=== PATIENT | male | born 1980 | race Two or more races ===

== ENCOUNTER 2020-11-01 00:25 | Inpatient (IN) | payer OTHER ==
[~2020-11-01] VITALS: Ht 182.9 cm; Wt 115.0 kg
[2020-11-01 00:55] VITALS: BP 153/97
[2020-11-01] MEDS ORDERED: PNEUMOCOCCAL VACCINE POLYVALENT 0.5 ML VIAL [PPSV23] IM ONE (02:15)
[2020-11-01] MEDS ORDERED: INFLUENZA VIRUS VACCINE QVS 2020-21 (6MO+)/PF 60 MCG/0.5 ML SYRINGE IM ONE (02:15)
[2020-11-01] MEDS ORDERED: AMOX500T2 PO (02:38)
[2020-11-01] MEDS ORDERED: GABA-1201 PO (02:58)
[2020-11-01] MEDS ORDERED: ACET-3385 PO (02:58)
[2020-11-01] MEDS ORDERED: NIFE-64 PO (02:58)
[2020-11-01] MEDS ORDERED: METF-961 PO (02:58)
[2020-11-01] MEDS ORDERED: INSU100V SQ (02:58)
[2020-11-01] MEDS ORDERED: GLIP10 PO (02:58)
[2020-11-01] MEDS ORDERED: NAPR250T4 PO (02:58)
[2020-11-01] MEDS ORDERED: CAPT25TA3 PO (02:58)
[2020-11-01 06:00] VITALS: BP 124/67
[2020-11-01] MEDS ORDERED: ACETAMINOPHEN 325 MG TABLET PO PRN (06:15)
[2020-11-01] MEDS ORDERED: HydrALAZINE HCL 50 MG TABLET PO PRN (06:15)
[2020-11-01] MEDS ORDERED: DEXTROSE 50%-WATER 25 GM/50 ML SYRINGE IVP PRN (06:15)
[2020-11-01 06:43] LABS: BASOPHILS % (AUTO) 0.6 % (0.0-2.0); EOSINOPHILS % (AUTO) 0.6 % (1.0-6.0); HEMATOCRIT 22.5 % (41-53); HEMOGLOBIN 7.5 g/dL (13.5-17.5); LYMPHOCYTES # (AUTO) 0.7 K/uL (1.0-4.8); LYMPHOCYTES % (AUTO) 6.4 % (22.0-44.0); MEAN CORPUSCULAR HEMOGLOBIN 31.5 pg (26.0-34.0); MEAN CORPUSCULAR HGB CONC 33.5 G/dL (31.0-37.0); MEAN CORPUSCULAR VOLUME 94 fL (80-100); MONOCYTES # (AUTO) 0.9 K/uL (0.1-1.0); MONOCYTES % (AUTO) 8.1 % (2.0-9.0); NEUTROPHILS # (AUTO) 9.5 K/uL (1.8-7.7); NEUTROPHILS % (AUTO) 84.3 % (40.0-70.0); PLATELET COUNT (AUTO) 295 K/uL (150-450); RED BLOOD CELL COUNT(AUTO) 2.39 MIL/uL (4.50-5.90); RED CELL DISTRIBUTION WIDTH 13.1 % (11.5-14.5)
[2020-11-01] MEDS: INSULIN LISPRO 100 UNITS/ML SQ PRN ×2 (06:49→21:18)
[2020-11-01 07:50] LABS: CALCIUM, TOTAL 8.7 mg/dL (8.8-10.5); CREATININE 1.72 mg/dL (0.60-1.30); POTASSIUM 5.1 mmol/L (3.5-5.1)
[2020-11-01] MEDS ORDERED: MetroNIDAZOLE 500 MG TABLET PO SCH (08:00)
[2020-11-01 08:15] LABS: GLUCOMETER DEV NAME(LOC) 6N.2; GLUCOSE,POINT OF CARE 266 MG/DL (70-110)
[2020-11-01] MEDS ORDERED: SODIUM CHLORIDE 0.9% 100 ML ONE (10:01)
[2020-11-01] MEDS: ASPIRIN 81 MG CHEWABLE TABLET PO SCH (10:11)
[2020-11-01] MEDS: HYDROCODONE/ACETAMINOPHEN 5-325 MG TABLET PO PRN ×2 (10:12→21:26)
[2020-11-01] MEDS: PROPRANOLOL HCL 40 MG TABLET PO SCH ×2 (10:12→21:15)
[2020-11-01] MEDS: NIFEdipine 90 MG ER TABLET PO SCH (10:12)
[2020-11-01] MEDS: CefTRIAXone 1 GM/DEXTROSE 50 ML IV SCH (12:30)
[2020-11-01] MEDS: CLINDAMYCIN 600 MG/D5% WATER 50 ML IV SCH ×2 (13:10→21:15)
[2020-11-01 20:52] VITALS: BP 119/69
[2020-11-01] MEDS ORDERED: INSULIN GLARGINE,HUM.REC.ANLOG 100 UNITS/ML SQ SCH (21:00)
[2020-11-02 01:33] LABS: GLUCOMETER DEV NAME(LOC) 4E.2; GLUCOSE,POINT OF CARE 268 MG/DL (70-110)
[2020-11-02] MEDS ORDERED: SODIUM CHLORIDE 0.9% 500 ML IV ONE (02:19)
[2020-11-02 04:23] VITALS: BP 146/71
[2020-11-02] MEDS: CLINDAMYCIN 600 MG/D5% WATER 50 ML IV SCH (05:09)
[2020-11-02] MEDS: INSULIN LISPRO 100 UNITS/ML SQ PRN (07:03)
[2020-11-02] MEDS: CefTRIAXone 1 GM/DEXTROSE 50 ML IV SCH (08:09)
[2020-11-02] MEDS: NIFEdipine 90 MG ER TABLET PO SCH ×2 (08:10→08:22)
[2020-11-02] MEDS: ASPIRIN 81 MG CHEWABLE TABLET PO SCH ×2 (08:10→08:21)
[2020-11-02] MEDS: PROPRANOLOL HCL 40 MG TABLET PO SCH ×2 (08:10→08:21)
[2020-11-02] MEDS ORDERED: GADOTERATE MEGLUMINE 10 MMOL/20 ML VIAL IVP ONE (08:22)
[2020-11-02 08:35] VITALS: BP 133/83
[2020-11-02 20:23] LABS: GLUCOMETER DEV NAME(LOC) 4E.2; GLUCOSE,POINT OF CARE 271 MG/DL (70-110)
== END 2020-11-02 10:30 | disposition left against medical advice (07) | DRG 638 ==
LOC: 6S 00:25
PROVIDERS: ADMIT Internal Medicine; ATTEND Internal Medicine
DX: E11.69 Type 2 diabetes mellitus with other specified complication (principal); M86.171 Other acute osteomyelitis, right ankle and foot; E78.5 Hyperlipidemia, unspecified; I10 Essential (primary) hypertension; H40.9 Unspecified glaucoma; Z91.19 Patient's noncompliance with other medical treatment and regimen; E11.65 Type 2 diabetes mellitus with hyperglycemia; Z53.29 Procedure and treatment not carried out because of patient's decision for other reasons
CPT/HCPCS: 87070; A9575; J0696; J1815; J3490; J7040; J7050; 36415-L1; 36415-TC; 71045-TC